=== PATIENT | female | born 1985 | race Caucasian/White ===

== ENCOUNTER 2024-01-21 05:04 | Emergency (ER) | payer MEDICAID ==
[~2024-01-21] VITALS: Ht 175.3 cm; Wt 68.0 kg
[2024-01-21] MEDS: IV NS 0.9% 500 ML BAG IV ONE (06:02)
[2024-01-21 06:15] LABS: BASOPHILS % (AUTO) 0.3 % (0.0-2.0); EOSINOPHILS % (AUTO) 0.4 % (0.0-6.0); HEMATOCRIT 37 % (33-45); HEMOGLOBIN 12.7 g/dL (11.5-14.8); LYMPHOCYTES % (AUTO) 15.5 % (20.0-44.0); MEAN CORPUSCULAR HEMOGLOBIN 30 PG (26.0-33.0); MEAN CORPUSCULAR HGB CONC 34 g/dl (31.0-36.0); MEAN CORPUSCULAR VOLUME 87 fL (82-100); MONOCYTES # (AUTO) 0.3 K/uL (0.1-1.30); MONOCYTES % (AUTO) 4.4 % (2.0-12.0); NEUTROPHILS # (AUTO) 5.4 K/uL (1.8-8.9); NEUTROPHILS % (AUTO) 79.4 % (43.0-81.0); PLATELET COUNT (AUTO) 119 K/uL (150-450); RED BLOOD CELL COUNT(AUTO) 4.26 MIL/uL (4.0-5.2); RED CELL DISTRIBUTION WIDTH 14.1 % (11.5-15.0); WHITE BLOOD COUNT (AUTO) 6.8 K/uL (4.3-11.0)
[2024-01-21 06:20] LABS: CALCIUM, SERUM 8.7 mg/dL (8.5-10.1); CREATININE 0.7 mg/dL (0.6-1.3); POTASSIUM 3.3 mmol/L (3.5-5.1)
[2024-01-21 06:22] LABS: APPEARANCE,URINE BLOODY (CLEAR); COLOR,URINE RED (YELLOW)
[2024-01-21 06:23] LABS: RBC,URINE TOO NUMEROUS TO COUN /HPF (0-2)
[2024-01-21] MEDS ORDERED: ACETAMINOPHEN 325 MG TABLET ONE (08:00)
[2024-01-21] MEDS: ACETAMINOPHEN 325 MG TABLET PO ONE (08:02)
[2024-01-21 08:35] LABS: HEMOGLOBIN 12.2 g/dL (11.5-14.8)
[2024-01-21 14:41] VITALS: BP 116/81; TEMP 98; O2SAT 99
== END 2024-01-21 14:42 | disposition home or self-care (01) ==
LOC: ER 05:09
DX: O26.891 Other specified pregnancy related conditions, first trimester (principal); O20.9 Hemorrhage in early pregnancy, unspecified; R10.2 Pelvic and perineal pain; Z3A.11 11 weeks gestation of pregnancy; Z60.2 Problems related to living alone
CPT/HCPCS: 99285; 76856; 96372; 85025; 80048; 81001; 36415; 84702; 85027; J7040; J2790

== ENCOUNTER 2024-01-23 10:13 | Emergency (ER) | payer MEDICAID ==
[~2024-01-23] VITALS: Ht 175.3 cm; Wt 63.5 kg
[2024-01-23] MEDS ORDERED: ACETAMINOPHEN 325 MG TABLET ONE (15:00)
[2024-01-23] MEDS: ACETAMINOPHEN 325 MG TABLET PO ONE (15:02)
[2024-01-23 15:09] VITALS: BP 114/63; TEMP 98.1; O2SAT 100
== END 2024-01-23 15:09 | disposition home or self-care (01) ==
LOC: ER 10:13
DX: O46.8X1 Other antepartum hemorrhage, first trimester (principal); R10.2 Pelvic and perineal pain; Z3A.11 11 weeks gestation of pregnancy; Z60.2 Problems related to living alone
CPT/HCPCS: 36415; 76856-TC; 84702-TC